=== PATIENT | female | born 1990 | race African-American/Black ===

== ENCOUNTER 2020-03-27 17:16 | Emergency (ER) | payer MEDICAID ==
[~2020-03-27] VITALS: Ht 165.1 cm; Wt 77.1 kg
[2020-03-27 18:48] VITALS: BP 141/92
== END 2020-03-27 23:44 | disposition home or self-care (01) ==
LOC: EDBD 17:16 → EDUNIT# 17:16 → ER 17:16
DX: S13.9XXA Sprain of joints and ligaments of unspecified parts of neck, initial encounter (principal); S43.401A Unspecified sprain of right shoulder joint, initial encounter; Z88.0 Allergy status to penicillin; V49.9XXA Car occupant (driver) (passenger) injured in unspecified traffic accident, initial encounter; Y93.89 Activity, other specified; Y92.89 Other specified places as the place of occurrence of the external cause; Y99.8 Other external cause status
CPT/HCPCS: 70450; 72125